=== PATIENT | female | born 1965 | race Caucasian/White ===

== ENCOUNTER 2017-04-14 10:17 | Emergency (ER) | payer OTHER ==
[~2017-04-14] VITALS: Ht 160 cm; Wt 73.0 kg
[~2017-04-14 10:17] MED LIST: ALBU0.086 INH; BIOT10004 PO; CEFU1TAB43 PO; CETI10 PO; GUAI100S6 PO; IPRAAER PO; LEXA10TA PO; MEDR4PAK3 PO; NEBUKIT4 XX; RANI150 PO; VENTAER INH
[2017-04-14 10:24] VITALS: BP 127/75; PULSE 77; RESP 16; TEMP 98.2; O2SAT 98
[2017-04-14] MEDS ORDERED: LEXA20TA PO (10:33)
[2017-04-14] MEDS ORDERED: CETI10 PO (10:33)
--- NOTE | 2017-04-14 10:33 | PD ---
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 The needle had been used to draw blood from a patient. The patient states that he has tested negative for HIV in the past. He says he had hep C and it was treated for 2 years with injections into his stomach. The nurses had hepatitis B immunization. Her tetanus is up-to- date [facility] Past Medical History Depression: Yes Past Surgical History Abdominal Surgery: Yes (INGUINAL HERNIA) Social History Alcohol Use: Yes (OCC) Tobacco Use: No (QUIT 2 YEAR AGO) Substance Use: No Allergies-Medications (Allergen,Severity, Reaction): Coded Allergies: penicillin G (Unverified Allergy, Mild, 03/03/17) Reported Meds & Prescriptions Reported Meds & Active Scripts Active Reported Cetirizine (Cetirizine HCl) 10 Mg Tab 10 Mg PO DAILY Lexapro (Escitalopram Oxalate) 20 Mg Tab 20 Mg PO DAILY Physical Exam Narrative There is a puncture wound to the right fifth finger Data Data Last Documented VS Vital Signs Date Time Temp Pulse Resp B/P (MAP) Pulse Ox O2 Delivery O2 Flow Rate FiO2 04/14/17 10:24 98.2 77 16 127/75 (92) 98 MDM Medical Decision Making Medical Screen Exam Complete: Yes Emergency Medical Condition: Yes Medical Record Reviewed: Yes Differential Diagnosis Patient has needle stick exposure. It was a blood contaminated needle. The source patient says he has been treated for hepatitis C. He says he been tested for HIV in the past and was negative. Recommendations for postexposure prophylaxis will be based on results of rapid HIV test. We have received the results of the rapid HIV test and it is negative. I did not recommend postexposure prophylaxis Narrative Course Rapid HIV test on the source patient is negative. Diagnosis Primary Impression: Needle stick injury Disposition: 01 DISCHARGE HOME Condition: Stable Asaf Palacios MD Apr 14, 2017 10:32
== END 2017-04-14 13:25 | disposition home or self-care (01) ==
LOC: PHED 10:17
DX: S61.236A Puncture wound without foreign body of right little finger without damage to nail, initial encounter (principal); W46.1XXA Contact with contaminated hypodermic needle, initial encounter; Y92.238 Other place in hospital as the place of occurrence of the external cause; Y99.0 Civilian activity done for income or pay
CPT/HCPCS: 99282